=== PATIENT | female | born 1960 | race Caucasian/White ===

== ENCOUNTER → 2017-08-16 | Outpatient (CLI) | payer OTHER ==
[~2017-08-16] MED LIST: CALCTAB36 PO; FISH1200 PO; LYSI500C2 PO
[2017-08-16 08:20] LABS: HEMATOCRIT 39.5 % (35.0-46.0); HEMOGLOBIN 13.3 GM/DL (11.6-15.3); MEAN CELL VOLUME 87.8 FL (80.0-100.0); MEAN CORPUSCULAR HEMOGLOBIN 29.6 PG (27.0-34.0); MEAN CORPUSCULAR HGB CONC 33.7 % (32.0-36.0); MEAN PLATELET VOLUME 8.1 FL (7.0-11.0); PLATELET COUNT 229 TH/MM3 (150-450); RED CELL DISTRIBUTION WIDTH 13.5 % (11.6-17.2); WHITE BLOOD COUNT 3.5 TH/MM3 (4.0-11.0)
[2017-08-16 08:47] LABS: ALBUMIN 3.8 GM/DL (3.4-5.0); AST (GOT) 21 U/L (15-37); BICARBONATE 27.9 MEQ/L (21.0-32.0); BLOOD UREA NITROGEN 13 MG/DL (7-18); CALCIUM 9.3 MG/DL (8.5-10.1); CHLORIDE 108 MEQ/L (98-107); CHOLESTEROL 240 MG/DL (120-200); CREATININE 0.61 MG/DL (0.50-1.00); GLOMERULAR FILTRATION RATE 100 ML/MIN (>89); GLUCOSE,FASTING 85 MG/DL (74-99); SODIUM (NA) 144 MEQ/L (136-145); TRIGLYCERIDES 55 MG/DL (42-150)
[2017-08-16 08:58] LABS: ALKALINE PHOSPHATASE 98 U/L (45-117); ALT (GPT) 21 U/L (10-53); CHOLESTEROL/ HDL RATIO 2.37 RATIO; LDL CHOLESTEROL 128 MG/DL (0-99); TOTAL BILIRUBIN ADULT 0.4 MG/DL (0.2-1.0); TOTAL PROTEIN 6.9 GM/DL (6.4-8.2)
== END ==
LOC: CLAB 07:00
PROVIDERS: ATTEND Family Medicine
DX: R53.81 Other malaise (principal); R53.83 Other fatigue
CPT/HCPCS: 36415; 80053; 80061; 84443; 85027